=== PATIENT | female | born 1995 | race Caucasian/White ===

== ENCOUNTER 2022-02-06 12:05 | Inpatient (IN) | payer OTHER ==
[2022-02-06 12:54] VITALS: BMI 34.0
[2022-02-06] MEDS ORDERED: BISMUTH SUBSALICYLATE 524 MG/30 ML PO PRN (16:06)
[2022-02-06] MEDS ORDERED: MAG HYDROX/AL HYDROX/SIMETH 30 ML UNIT-DOSE CUP PO PRN (16:06)
[2022-02-06] MEDS ORDERED: IBUPROFEN 600 MG TABLET (FP) PO PRN (16:06)
[2022-02-06] MEDS ORDERED: BENZOCAINE/MENTHOL (CHLORASEPTIC ) LOZENGE MM PRN (16:06)
[2022-02-06] MEDS ORDERED: NICOTINE 10 MG CARTRIDGE (INHALER) IH PRN (16:06)
[2022-02-06] MEDS ORDERED: ACETAMINOPHEN 325 MG TABLET (FP) PO PRN ×2 (16:06)
[2022-02-06] MEDS ORDERED: DICYCLOMINE HCL 10 MG CAPSULE PO PRN (16:06)
[2022-02-06] MEDS ORDERED: IBUPROFEN 400 MG TABLET (FP) PO PRN (16:06)
[2022-02-06] MEDS ORDERED: LOPERAMIDE HCL 2 MG CAPSULE PO PRN (16:06)
[2022-02-06] MEDS ORDERED: MAGNESIUM HYDROX 2400MG/30ML ORAL SUSPENSION 30 ML CUP PO PRN (16:06)
[2022-02-06] MEDS ORDERED: methaDONE HCL 10 MG TABLET (FOR DETOX USE ONLY) PO ONE (16:06)
[2022-02-06] MEDS ORDERED: MAGNESIUM CITRATE 300 ML BOTTLE PO PRN (16:06)
[2022-02-06] MEDS ORDERED: cloNIDine HCL 0.1 MG TABLET PO PRN (16:06)
[2022-02-06] MEDS ORDERED: ONDANSETRON *ODT* 4 MG TABLET SL PRN (16:06)
[2022-02-06] MEDS: PRENATAL VITAMINS W/ FOLIC ACID TABLET (FP) PO SCH (16:54)
[2022-02-06] MEDS: diazePAM 5 MG TABLET PO SCH ×2 (16:58→22:23)
[2022-02-06] MEDS: hydrOXYzine PAMOATE 25 MG CAPSULE (FP) PO SCH ×2 (19:06→22:23)
[2022-02-06] MEDS: METHOCARBAMOL 500 MG TABLET PO PRN (20:44)
[2022-02-06] MEDS: diazePAM 5 MG TABLET PO PRN (20:44)
[2022-02-06] MEDS: MELATONIN 5 MG TABLETS PO SCH (22:23)
[2022-02-06] MEDS: AMOXICILLIN 500 MG CAPSULE (FP) PO SCH (22:23)
[2022-02-06] MEDS: THIAMINE HCL 100 MG TABLET (FP) PO SCH (22:23)
[2022-02-07] MEDS: diazePAM 5 MG TABLET PO SCH ×4 (05:44→22:07)
[2022-02-07] MEDS: hydrOXYzine PAMOATE 25 MG CAPSULE (FP) PO SCH ×5 (05:45→22:07)
[2022-02-07] MEDS: PRENATAL VITAMINS W/ FOLIC ACID TABLET (FP) PO SCH (09:08)
[2022-02-07] MEDS: AMOXICILLIN 500 MG CAPSULE (FP) PO SCH ×2 (09:08→22:07)
[2022-02-07 09:41] LABS: HEMATOCRIT 37.5 % (32.4-45.2); HEMOGLOBIN 12.8 GM/dL (10.7-15.3); MCH 24.9 pg (25.7-33.7); MCHC 34.2 g/dl (32.0-36.0); MEAN CELL VOLUME 72.8 fl (80-96); MEAN PLT VOLUME 8.9 fl (7.5-11.1); PLATELET COUNT 223 10^3/uL (134-434); RBC 5.15 M/mm3 (3.60-5.2); RDW 13.8 % (11.6-15.6); WHITE BLOOD COUNT 3.9 K/mm3 (4.0-10.0)
[2022-02-07 09:49] LABS: CALCIUM 9.2 mg/dL (8.5-10.1)
[2022-02-07 09:50] LABS: ALBUMIN 3.7 g/dl (3.4-5.0)
[2022-02-07 09:53] LABS: CREATININE 0.7 mg/dL (0.55-1.3)
[2022-02-07 09:54] LABS: TOT PROT 7.7 g/dl (6.4-8.2)
[2022-02-07 09:55] LABS: BILIRUBIN,TOTAL 1.2 mg/dL (0.2-1)
[2022-02-07] MEDS: METHOCARBAMOL 500 MG TABLET PO PRN ×2 (10:23→17:57)
[2022-02-07] MEDS: diazePAM 5 MG TABLET PO PRN ×2 (14:12→20:01)
[2022-02-07] MEDS ORDERED: QUEtiapine FUMARATE 100 MG TABLET (FP) PO SCH (22:00)
[2022-02-07] MEDS: MELATONIN 5 MG TABLETS PO SCH (22:06)
[2022-02-07] MEDS: THIAMINE HCL 100 MG TABLET (FP) PO SCH (22:07)
[2022-02-07] MEDS: QUEtiapine FUMARATE 200 MG TABLET PO SCH (22:07)
[2022-02-08] MEDS: hydrOXYzine PAMOATE 25 MG CAPSULE (FP) PO SCH ×5 (05:28→22:43)
[2022-02-08] MEDS: diazePAM 5 MG TABLET PO SCH ×3 (05:46→22:43)
[2022-02-08] MEDS: diazePAM 5 MG TABLET PO PRN ×3 (07:42→17:41)
[2022-02-08] MEDS: AMOXICILLIN 500 MG CAPSULE (FP) PO SCH ×2 (09:04→22:43)
[2022-02-08] MEDS: PRENATAL VITAMINS W/ FOLIC ACID TABLET (FP) PO SCH (09:04)
[2022-02-08] MEDS ORDERED: methaDONE HCL 10 MG TABLET (FOR DETOX USE ONLY) PO ONE (10:00)
[2022-02-08] MEDS: METHOCARBAMOL 500 MG TABLET PO PRN (17:41)
[2022-02-08] MEDS: THIAMINE HCL 100 MG TABLET (FP) PO SCH (22:43)
[2022-02-08] MEDS: MELATONIN 5 MG TABLETS PO SCH (22:43)
[2022-02-08] MEDS: QUEtiapine FUMARATE 200 MG TABLET PO SCH (22:43)
[2022-02-09] MEDS: diazePAM 5 MG TABLET PO SCH ×2 (05:44→17:44)
[2022-02-09] MEDS: hydrOXYzine PAMOATE 25 MG CAPSULE (FP) PO SCH ×5 (05:44→22:03)
[2022-02-09] MEDS: METHOCARBAMOL 500 MG TABLET PO PRN (10:06)
[2022-02-09] MEDS: PRENATAL VITAMINS W/ FOLIC ACID TABLET (FP) PO SCH (10:06)
[2022-02-09] MEDS: AMOXICILLIN 500 MG CAPSULE (FP) PO SCH ×2 (10:06→22:03)
[2022-02-09] MEDS: diazePAM 5 MG TABLET PO PRN ×2 (10:08→14:42)
[2022-02-09] MEDS: QUEtiapine FUMARATE 200 MG TABLET PO SCH (22:03)
[2022-02-09] MEDS: THIAMINE HCL 100 MG TABLET (FP) PO SCH (22:03)
[2022-02-09] MEDS: MELATONIN 5 MG TABLETS PO SCH (22:44)
[2022-02-10] MEDS: hydrOXYzine PAMOATE 25 MG CAPSULE (FP) PO SCH ×2 (05:56→09:04)
[2022-02-10] MEDS ORDERED: diazePAM 5 MG TABLET PO ONE (06:00)
[2022-02-10] MEDS: AMOXICILLIN 500 MG CAPSULE (FP) PO SCH (09:04)
[2022-02-10] MEDS: METHOCARBAMOL 500 MG TABLET PO PRN (09:04)
[2022-02-10] MEDS: PRENATAL VITAMINS W/ FOLIC ACID TABLET (FP) PO SCH (09:14)
[2022-02-10 09:58] VITALS: TEMP 97.3
[2022-02-10] MEDS ORDERED: methaDONE HCL 10 MG TABLET (FOR DETOX USE ONLY) PO ONE (10:00)
[2022-02-10] MEDS ORDERED: cloNIDine HCL 0.1 MG TABLET PO PRN (10:58)
[2022-02-10 13:41] VITALS: BP 130/84; PULSE 76; RESP 18
[2022-02-10] MEDS ORDERED: SUVOREXANT 10 MG TABLET PO PRN (22:00)
== END 2022-02-10 13:41 | disposition home or self-care (01) | DRG 773 ==
LOC: YASAS 12:05 → Y6N 16:11
PROVIDERS: ADMIT Allergy & Immunology; ATTEND Surgery
PROC: HZ2ZZZZ Detoxification Services for Substance Abuse Treatment (ICD-10-PCS; principal; 2022-02-06)
DX: F11.23 Opioid dependence with withdrawal (principal); F13.20 Sedative, hypnotic or anxiolytic dependence, uncomplicated; F14.20 Cocaine dependence, uncomplicated; F17.210 Nicotine dependence, cigarettes, uncomplicated; F19.282 Other psychoactive substance dependence with psychoactive substance-induced sleep disorder; F19.280 Other psychoactive substance dependence with psychoactive substance-induced anxiety disorder; F19.24 Other psychoactive substance dependence with psychoactive substance-induced mood disorder; F31.81 Bipolar II disorder; F60.3 Borderline personality disorder; L02.416 Cutaneous abscess of left lower limb; L02.415 Cutaneous abscess of right lower limb; Z62.810 Personal history of physical and sexual abuse in childhood; E66.9 Obesity, unspecified; Z68.34 Body mass index [BMI] 34.0-34.9, adult; Z28.310 Unvaccinated for COVID-19; Z28.9 Immunization not carried out for unspecified reason
CPT/HCPCS: 36415; 80053; 81025; 85027; 86780; C9803-CS; Q0162; U0003; U0005

== ENCOUNTER 2022-06-14 13:01 | Inpatient (IN) | payer OTHER ==
[2022-06-14 14:07] VITALS: BMI 36.9
[2022-06-14] MEDS ORDERED: BISMUTH SUBSALICYLATE 524 MG/30 ML PO PRN (15:40)
[2022-06-14] MEDS ORDERED: ONDANSETRON *ODT* 4 MG TABLET SL PRN (15:40)
[2022-06-14] MEDS ORDERED: IBUPROFEN 400 MG TABLET (FP) PO PRN (15:40)
[2022-06-14] MEDS ORDERED: NICOTINE 10 MG CARTRIDGE (INHALER) IH PRN (15:40)
[2022-06-14] MEDS ORDERED: DICYCLOMINE HCL 10 MG CAPSULE PO PRN (15:40)
[2022-06-14] MEDS ORDERED: IBUPROFEN 600 MG TABLET (FP) PO PRN (15:40)
[2022-06-14] MEDS ORDERED: NALOXONE HCL (KLOXXADO) 8 MG SPRAY NS PRN (15:40)
[2022-06-14] MEDS ORDERED: LOPERAMIDE HCL 2 MG CAPSULE PO PRN (15:40)
[2022-06-14] MEDS ORDERED: BENZOCAINE/MENTHOL (CHLORASEPTIC ) LOZENGE MM PRN (15:40)
[2022-06-14] MEDS ORDERED: POLYETHYLENE GLYCOL (HEALTHYLAX) 3350 17 GM PACKET PO PRN (15:40)
[2022-06-14] MEDS ORDERED: MAGNESIUM HYDROX 2400MG/30ML ORAL SUSPENSION 30 ML CUP PO PRN (15:40)
[2022-06-14] MEDS ORDERED: MAG HYDROX/AL HYDROX/SIMETH 30 ML UNIT-DOSE CUP PO PRN (15:40)
[2022-06-14] MEDS ORDERED: ACETAMINOPHEN 325 MG TABLET (FP) PO PRN ×2 (15:40)
[2022-06-14] MEDS: CEPHALEXIN MONOHYDRATE 500 MG CAPSULE (UD) PO SCH (17:33)
[2022-06-14] MEDS: hydrOXYzine PAMOATE 25 MG CAPSULE (FP) PO PRN ×2 (17:35→22:48)
[2022-06-14] MEDS: METHOCARBAMOL 500 MG TABLET PO PRN (17:38)
[2022-06-14] MEDS ORDERED: methaDONE HCL 10 MG TABLET (FOR DETOX USE ONLY) PO ONE (18:00)
[2022-06-14] MEDS: diazePAM 5 MG TABLET PO PRN (19:31)
[2022-06-14] MEDS ORDERED: MELATONIN 5 MG TABLETS PO SCH (22:00)
[2022-06-14] MEDS: THIAMINE HCL 100 MG TABLET (FP) PO SCH (22:47)
[2022-06-14] MEDS: diazePAM 5 MG TABLET PO SCH (22:48)
[2022-06-14] MEDS: BACITRACIN 0.9 GM PACKET TP SCH (22:48)
[2022-06-15] MEDS: CEPHALEXIN MONOHYDRATE 500 MG CAPSULE (UD) PO SCH ×4 (00:08→17:53)
[2022-06-15] MEDS: diazePAM 5 MG TABLET PO SCH ×4 (06:02→22:17)
[2022-06-15] MEDS: METHOCARBAMOL 500 MG TABLET PO PRN ×2 (10:10→22:19)
[2022-06-15] MEDS: BACITRACIN 0.9 GM PACKET TP SCH ×2 (10:10→22:17)
[2022-06-15] MEDS: PRENATAL VITAMINS W/ FOLIC ACID TABLET (FP) PO SCH (10:10)
[2022-06-15] MEDS: DULoxetine HCL 60 MG CAPSULE.DR PO SCH (11:22)
[2022-06-15] MEDS: hydrOXYzine PAMOATE 25 MG CAPSULE (FP) PO PRN (13:55)
[2022-06-15] MEDS: cloNIDine HCL 0.1 MG TABLET PO PRN (13:58)
[2022-06-15] MEDS ORDERED: GABAPENTIN 300 MG CAPSULE PO SCH (14:00)
[2022-06-15] MEDS: GABAPENTIN 100 MG CAPSULE PO SCH ×2 (14:01→22:18)
[2022-06-15] MEDS: QUEtiapine FUMARATE 200 MG TABLET PO SCH (22:18)
[2022-06-15] MEDS: MINERAL OIL/PETROLAT/WATER TOPICAL CREAM 113 GM JAR TP SCH (22:18)
[2022-06-15] MEDS: THIAMINE HCL 100 MG TABLET (FP) PO SCH (22:18)
[2022-06-16] MEDS: CEPHALEXIN MONOHYDRATE 500 MG CAPSULE (UD) PO SCH ×5 (00:58→23:59)
[2022-06-16] MEDS: GABAPENTIN 100 MG CAPSULE PO SCH ×3 (05:30→22:20)
[2022-06-16] MEDS: diazePAM 5 MG TABLET PO SCH ×3 (05:30→22:18)
[2022-06-16] MEDS: METHOCARBAMOL 500 MG TABLET PO PRN (09:41)
[2022-06-16] MEDS: BACITRACIN 0.9 GM PACKET TP SCH ×2 (09:41→22:18)
[2022-06-16] MEDS: DULoxetine HCL 60 MG CAPSULE.DR PO SCH (09:41)
[2022-06-16] MEDS: diazePAM 5 MG TABLET PO PRN ×2 (09:42→17:30)
[2022-06-16] MEDS: MINERAL OIL/PETROLAT/WATER TOPICAL CREAM 113 GM JAR TP SCH ×2 (09:44→22:20)
[2022-06-16] MEDS: PRENATAL VITAMINS W/ FOLIC ACID TABLET (FP) PO SCH (09:45)
[2022-06-16] MEDS ORDERED: methaDONE HCL 10 MG TABLET (FOR DETOX USE ONLY) PO ONE (10:00)
[2022-06-16] MEDS: cloNIDine HCL 0.1 MG TABLET PO PRN ×2 (13:19→18:49)
[2022-06-16] MEDS: QUEtiapine FUMARATE 200 MG TABLET PO SCH (22:18)
[2022-06-16] MEDS: THIAMINE HCL 100 MG TABLET (FP) PO SCH (22:18)
[2022-06-17] MEDS: GABAPENTIN 100 MG CAPSULE PO SCH ×3 (05:29→22:13)
[2022-06-17] MEDS: CEPHALEXIN MONOHYDRATE 500 MG CAPSULE (UD) PO SCH ×3 (05:29→17:09)
[2022-06-17] MEDS: diazePAM 5 MG TABLET PO SCH ×2 (05:30→17:09)
[2022-06-17] MEDS: BACITRACIN 0.9 GM PACKET TP SCH ×2 (09:41→22:13)
[2022-06-17] MEDS: METHOCARBAMOL 500 MG TABLET PO PRN (09:41)
[2022-06-17] MEDS: PRENATAL VITAMINS W/ FOLIC ACID TABLET (FP) PO SCH (09:41)
[2022-06-17] MEDS: diazePAM 5 MG TABLET PO PRN ×2 (09:43→14:16)
[2022-06-17] MEDS: MINERAL OIL/PETROLAT/WATER TOPICAL CREAM 113 GM JAR TP SCH ×2 (09:45→22:14)
[2022-06-17] MEDS: DULoxetine HCL 60 MG CAPSULE.DR PO SCH (10:28)
[2022-06-17] MEDS: hydrOXYzine PAMOATE 25 MG CAPSULE (FP) PO PRN ×2 (12:28→17:09)
[2022-06-17 13:12] LABS: HEMATOCRIT 42.6 % (32.4-45.2); HEMOGLOBIN 14.4 GM/dL (10.7-15.3); MCH 25.1 pg (25.7-33.7); MCHC 33.7 g/dl (32.0-36.0); MEAN CELL VOLUME 74.4 fl (80-96); MEAN PLT VOLUME 9.1 fl (7.5-11.1); PLATELET COUNT 231 10^3/uL (134-434); RBC 5.72 M/mm3 (3.60-5.2); RDW 13.5 % (11.6-15.6)
[2022-06-17 13:27] LABS: CALCIUM 9.3 mg/dL (8.5-10.1)
[2022-06-17 13:28] LABS: ALBUMIN 3.7 g/dl (3.4-5.0)
[2022-06-17 13:31] LABS: BILIRUBIN,TOTAL 0.8 mg/dL (0.2-1); CREATININE 0.7 mg/dL (0.55-1.3)
[2022-06-17 13:32] LABS: TOT PROT 7.7 g/dl (6.4-8.2)
[2022-06-17] MEDS ORDERED: cloNIDine HCL 0.1 MG TABLET PO ONE (14:25)
[2022-06-17] MEDS: QUEtiapine FUMARATE 200 MG TABLET PO SCH (22:13)
[2022-06-17] MEDS: THIAMINE HCL 100 MG TABLET (FP) PO SCH (22:14)
[2022-06-17] MEDS: SUVOREXANT 10 MG TABLET PO PRN (22:16)
[2022-06-18] MEDS: CEPHALEXIN MONOHYDRATE 500 MG CAPSULE (UD) PO SCH ×5 (00:27→23:00)
[2022-06-18] MEDS ORDERED: diazePAM 5 MG TABLET PO ONE (06:00)
[2022-06-18] MEDS: GABAPENTIN 100 MG CAPSULE PO SCH ×3 (06:07→22:08)
[2022-06-18] MEDS: BACITRACIN 0.9 GM PACKET TP SCH ×2 (09:20→22:13)
[2022-06-18] MEDS: PRENATAL VITAMINS W/ FOLIC ACID TABLET (FP) PO SCH (09:20)
[2022-06-18] MEDS: DULoxetine HCL 60 MG CAPSULE.DR PO SCH (09:21)
[2022-06-18] MEDS: METHOCARBAMOL 500 MG TABLET PO PRN ×2 (09:21→22:10)
[2022-06-18] MEDS: MINERAL OIL/PETROLAT/WATER TOPICAL CREAM 113 GM JAR TP SCH ×2 (09:22→22:13)
[2022-06-18] MEDS ORDERED: methaDONE HCL 10 MG TABLET (FOR DETOX USE ONLY) PO ONE (10:00)
[2022-06-18] MEDS: hydrOXYzine PAMOATE 25 MG CAPSULE (FP) PO PRN (17:10)
[2022-06-18] MEDS: SUVOREXANT 10 MG TABLET PO PRN (22:08)
[2022-06-18] MEDS: THIAMINE HCL 100 MG TABLET (FP) PO SCH (22:08)
[2022-06-18] MEDS: QUEtiapine FUMARATE 200 MG TABLET PO SCH (22:09)
[2022-06-19] MEDS: CEPHALEXIN MONOHYDRATE 500 MG CAPSULE (UD) PO SCH (06:25)
[2022-06-19] MEDS: GABAPENTIN 100 MG CAPSULE PO SCH (06:25)
[2022-06-19 09:29] VITALS: BP 111/77; PULSE 99; RESP 20; TEMP 97.9
[2022-06-19] MEDS: BACITRACIN 0.9 GM PACKET TP SCH (09:47)
[2022-06-19] MEDS: DULoxetine HCL 60 MG CAPSULE.DR PO SCH (09:47)
[2022-06-19] MEDS: MINERAL OIL/PETROLAT/WATER TOPICAL CREAM 113 GM JAR TP SCH (09:47)
[2022-06-19] MEDS: PRENATAL VITAMINS W/ FOLIC ACID TABLET (FP) PO SCH (09:47)
== END 2022-06-19 10:08 | disposition home or self-care (01) | DRG 773 ==
LOC: YASAS 13:01 → Y6N 15:54
PROVIDERS: ADMIT Allergy & Immunology; ATTEND Surgery
PROC: HZ2ZZZZ Detoxification Services for Substance Abuse Treatment (ICD-10-PCS; principal; 2022-06-14)
DX: F11.23 Opioid dependence with withdrawal (principal); F13.230 Sedative, hypnotic or anxiolytic dependence with withdrawal, uncomplicated; F12.20 Cannabis dependence, uncomplicated; F17.210 Nicotine dependence, cigarettes, uncomplicated; F25.1 Schizoaffective disorder, depressive type; F31.81 Bipolar II disorder; F19.24 Other psychoactive substance dependence with psychoactive substance-induced mood disorder; F43.10 Post-traumatic stress disorder, unspecified; F60.3 Borderline personality disorder; L03.113 Cellulitis of right upper limb; L03.114 Cellulitis of left upper limb; L03.116 Cellulitis of left lower limb; Z62.810 Personal history of physical and sexual abuse in childhood
CPT/HCPCS: 36415; 80053; 85027; 86780; 87811; C9803-CS; Q0162; U0003; U0005

== ENCOUNTER 2023-01-21 12:58 | Inpatient (IN) | payer OTHER ==
[2023-01-21 14:06] VITALS: BMI 37.5
[2023-01-21] MEDS ORDERED: LOPERAMIDE HCL 2 MG CAPSULE PO PRN (14:43)
[2023-01-21] MEDS ORDERED: BENZOCAINE/MENTHOL (CHLORASEPTIC ) LOZENGE MM PRN (14:43)
[2023-01-21] MEDS ORDERED: NALOXONE HCL 0.4 MG/ML VIAL IM PRN (14:43)
[2023-01-21] MEDS ORDERED: hydrOXYzine PAMOATE 25 MG CAPSULE (FP) PO PRN (14:43)
[2023-01-21] MEDS ORDERED: DICYCLOMINE HCL 10 MG CAPSULE PO PRN (14:43)
[2023-01-21] MEDS ORDERED: BISMUTH SUBSALICYLATE 524 MG/30 ML PO PRN (14:43)
[2023-01-21] MEDS ORDERED: BENZONATATE 200 MG CAPSULE PO PRN (14:43)
[2023-01-21] MEDS ORDERED: diazePAM 5 MG TABLET PO ONE (14:43)
[2023-01-21] MEDS ORDERED: ACETAMINOPHEN 325 MG TABLET (FP) PO PRN (14:43)
[2023-01-21] MEDS ORDERED: IBUPROFEN 600 MG TABLET (FP) PO PRN (14:43)
[2023-01-21] MEDS ORDERED: NALOXONE HCL (KLOXXADO) 8 MG SPRAY NS PRN (14:43)
[2023-01-21] MEDS ORDERED: guaiFENesin 600 MG TABLET.ER (FP) PO PRN (14:43)
[2023-01-21] MEDS ORDERED: MAG HYDROX/AL HYDROX/SIMETH 30 ML UNIT-DOSE CUP PO PRN (14:43)
[2023-01-21] MEDS ORDERED: MAGNESIUM HYDROX 2400MG/30ML ORAL SUSPENSION 30 ML CUP PO PRN (14:43)
[2023-01-21] MEDS ORDERED: IBUPROFEN 400 MG TABLET (FP) PO PRN (14:43)
[2023-01-21] MEDS ORDERED: ONDANSETRON *ODT* 4 MG TABLET SL PRN (14:43)
[2023-01-21] MEDS ORDERED: METHOCARBAMOL 500 MG TABLET PO PRN (14:43)
[2023-01-21] MEDS ORDERED: POLYETHYLENE GLYCOL (HEALTHYLAX) 3350 17 GM PACKET PO PRN (14:43)
[2023-01-21] MEDS ORDERED: diazePAM 5 MG TABLET ONE (14:59)
[2023-01-21] MEDS: diazePAM 5 MG TABLET PO SCH ×2 (17:46→23:45)
[2023-01-21] MEDS: GABAPENTIN 400 MG CAPSULE PO SCH ×2 (17:46→22:06)
[2023-01-21] MEDS: diazePAM 5 MG TABLET PO PRN (21:07)
[2023-01-21] MEDS: MELATONIN 5 MG TABLETS PO SCH (22:06)
[2023-01-21] MEDS: THIAMINE HCL 100 MG TABLET (FP) PO SCH (22:06)
[2023-01-22] MEDS: diazePAM 5 MG TABLET PO SCH ×4 (05:30→23:36)
[2023-01-22] MEDS: diazePAM 5 MG TABLET PO PRN ×3 (07:53→20:15)
[2023-01-22 09:34] LABS: HEMATOCRIT 37.5 % (32.4-45.2); MCH 24.8 pg (25.7-33.7); MCHC 34.5 g/dl (32.0-36.0); MEAN CELL VOLUME 71.9 fl (80-96); MEAN PLT VOLUME 9.4 fl (7.5-11.1); PLATELET COUNT 239 10^3/uL (134-434); RBC 5.22 M/mm3 (3.60-5.2); RDW 13.2 % (11.6-15.6); WHITE BLOOD COUNT 5.2 K/mm3 (4.0-10.0)
[2023-01-22] MEDS ORDERED: cloNIDine HCL 0.1 MG TABLET PO ONE (10:00)
[2023-01-22] MEDS: PRENATAL VITAMINS W/ FOLIC ACID TABLET (FP) PO SCH (10:00)
[2023-01-22] MEDS: GABAPENTIN 400 MG CAPSULE PO SCH ×4 (10:01→22:20)
[2023-01-22] MEDS: methaDONE HCL 40 MG DISPERSABLE TABLET PO SCH (10:01)
[2023-01-22] MEDS: risperiDONE 1 MG TABLET PO SCH (10:02)
[2023-01-22] MEDS: DULoxetine HCL 60 MG CAPSULE.DR PO SCH (10:17)
[2023-01-22] MEDS: MINERAL OIL/PETROLAT/WATER TOPICAL CREAM 113 GM JAR TP SCH ×2 (11:13→22:20)
[2023-01-22 14:33] LABS: ALBUMIN 3.3 g/dl (3.4-5.0); BLOOD UREA NITROGEN 9.9 mg/dL (7-18); CALCIUM 9.3 mg/dL (8.5-10.1)
[2023-01-22] MEDS: cloNIDine HCL 0.1 MG TABLET PO SCH ×2 (14:34→22:20)
[2023-01-22 14:44] LABS: CREATININE 0.8 mg/dL (0.55-1.3)
[2023-01-22 14:46] LABS: BILIRUBIN,TOTAL 0.8 mg/dL (0.2-1)
[2023-01-22] MEDS: QUEtiapine FUMARATE 200 MG TABLET PO SCH (22:20)
[2023-01-22] MEDS: THIAMINE HCL 100 MG TABLET (FP) PO SCH (22:20)
[2023-01-22] MEDS: MELATONIN 5 MG TABLETS PO SCH (22:20)
[2023-01-23] MEDS: diazePAM 5 MG TABLET PO SCH ×3 (05:23→22:02)
[2023-01-23] MEDS: methaDONE HCL 40 MG DISPERSABLE TABLET PO SCH (05:23)
[2023-01-23] MEDS: cloNIDine HCL 0.1 MG TABLET PO SCH ×3 (05:23→22:02)
[2023-01-23] MEDS: diazePAM 5 MG TABLET PO PRN ×2 (08:35→17:29)
[2023-01-23] MEDS: MINERAL OIL/PETROLAT/WATER TOPICAL CREAM 113 GM JAR TP SCH ×2 (10:20→22:02)
[2023-01-23] MEDS: PRENATAL VITAMINS W/ FOLIC ACID TABLET (FP) PO SCH (10:20)
[2023-01-23] MEDS: GABAPENTIN 400 MG CAPSULE PO SCH ×4 (10:21→22:01)
[2023-01-23] MEDS: DULoxetine HCL 60 MG CAPSULE.DR PO SCH (10:21)
[2023-01-23] MEDS: risperiDONE 1 MG TABLET PO SCH (10:21)
[2023-01-23] MEDS: THIAMINE HCL 100 MG TABLET (FP) PO SCH (22:01)
[2023-01-23] MEDS: MELATONIN 5 MG TABLETS PO SCH (22:01)
[2023-01-23] MEDS: QUEtiapine FUMARATE 200 MG TABLET PO SCH (22:01)
[2023-01-24] MEDS: methaDONE HCL 40 MG DISPERSABLE TABLET PO SCH (05:43)
[2023-01-24] MEDS: cloNIDine HCL 0.1 MG TABLET PO SCH (05:44)
[2023-01-24] MEDS ORDERED: diazePAM 5 MG TABLET PO SCH (06:00)
[2023-01-24 09:42] VITALS: BP 124/88; PULSE 106; RESP 19; TEMP 97.3
[2023-01-24] MEDS: PRENATAL VITAMINS W/ FOLIC ACID TABLET (FP) PO SCH (09:52)
[2023-01-24] MEDS: risperiDONE 1 MG TABLET PO SCH (09:53)
[2023-01-24] MEDS: DULoxetine HCL 60 MG CAPSULE.DR PO SCH (09:53)
[2023-01-24] MEDS: MINERAL OIL/PETROLAT/WATER TOPICAL CREAM 113 GM JAR TP SCH (09:53)
[2023-01-24] MEDS: GABAPENTIN 400 MG CAPSULE PO SCH (09:53)
[2023-01-25] MEDS ORDERED: diazePAM 5 MG TABLET PO ONE (06:00)
== END 2023-01-24 11:25 | disposition other institution (70) | DRG 773 ==
LOC: YASAS 12:58 → Y3N 16:18
PROVIDERS: ADMIT Allergy & Immunology; ATTEND Surgery
PROC: HZ2ZZZZ Detoxification Services for Substance Abuse Treatment (ICD-10-PCS; principal; 2023-01-21)
DX: F10.230 Alcohol dependence with withdrawal, uncomplicated (principal); F13.230 Sedative, hypnotic or anxiolytic dependence with withdrawal, uncomplicated; F11.20 Opioid dependence, uncomplicated; F17.210 Nicotine dependence, cigarettes, uncomplicated; F19.282 Other psychoactive substance dependence with psychoactive substance-induced sleep disorder; M54.50 Low back pain, unspecified; M25.561 Pain in right knee; M25.562 Pain in left knee; G89.29 Other chronic pain; Z62.810 Personal history of physical and sexual abuse in childhood; Z86.59 Personal history of other mental and behavioral disorders
CPT/HCPCS: 36415; 80053; 81025; 85027; 86780; 87635; 87811